=== PATIENT | female | born 1950 | race Caucasian/White ===

== ENCOUNTER → 2016-08-18 | Outpatient (CLI) | payer BC ==
[~2016-08-18] MED LIST: ASPI-113 PO; ATOR10TA88 PO; BENA1TAB19 PO; CLB/200 PO; OXYC-292 PO
[2016-08-18 18:01] LABS: URINE APPEARANCE CLEAR (CLEAR); URINE BILIRUBIN NEG (NEG); URINE COLOR YELLOW; URINE EPITHELIAL CELL AUTO >30 /lpf (0-5); URINE NITRITE NEG (NEG); URINE SPECIFIC GRAVITY 1.005 (1.000-1.030); UROBILINOGEN NEG (NEG)
[2016-08-18 18:12] LABS: MANUAL MICROSCOPIC REQUIRED? NO; REVIEW REQ? NO
== END | disposition home or self-care (01) ==
LOC: C.LABSPEC 16:52
PROVIDERS: ATTEND Obstetrics & Gynecology
DX: N76.2 Acute vulvitis (principal)

== ENCOUNTER → 2016-09-15 | Outpatient (CLI) | payer BC | END | disposition home or self-care (01) | LOC: C.PAPS 13:40 | PROVIDERS: ATTEND Obstetrics & Gynecology | DX: Z01.419 Encounter for gynecological examination (general) (routine) without abnormal findings (principal) ==

== ENCOUNTER → 2017-04-13 | Outpatient (CLI) | payer BC ==
--- NOTE | 2017-04-14 07:34 | MAMMOGRAPHY REPORT ---
BILATERAL DIGITAL SCREENING MAMMOGRAM WITH CAD: 04/13/2017 CLINICAL HISTORY: Routine screening. Patient has no complaints. TECHNIQUE: Bilateral CC and MLO views were obtained. Current study was also evaluated with a Comput er Aided Detection (CAD) system. COMPARISON: Comparison is made to exams dated: 04/08/2016 mammogram, 04/04/2015 mammogram, 03/20/2014 mammogram, 03/16/2013 mammogram, 03/15/2012 mammogram, and 03/12/2011 mammogram - [facility]. BREAST COMPOSITION: There are scattered areas of fibroglandular density in both breasts. FINDINGS: The breast parenchymal pattern is similar to prior mammograms. No suspicious mass, archite ctural distortion or cluster of microcalcifications is seen. IMPRESSION: ACR BI-RADS CATEGORY 1: NEGATIVE There is no mammographic evidence of malignancy. A 1 year screening mammogram is recommended. The pa tient will receive written notification of the results. Approximately 10% of breast cancers are not detected with mammography. A negative mammographic report should not delay biopsy if a clinically suggestive mass is present. Chayo Pereira M.D. ay/:04/13/2017 15:16:31 Dining Room Attendant Cafeteria: Deann Madrid, [facility] letter sent: Normal 1/2 BI-RADS Code: ACR BI-RADS Category 1: Negative
== END | disposition home or self-care (01) ==
LOC: C.MAMM 08:26
PROVIDERS: ATTEND Obstetrics & Gynecology
DX: Z12.31 Encounter for screening mammogram for malignant neoplasm of breast (principal)

== ENCOUNTER → 2017-07-20 | Outpatient (CLI) | payer BC ==
[~2017-07-20] MED LIST changes: +ATOR10TA82 PO; -ATOR10TA88 PO; -BENA1TAB19 PO; +BENA1TAB53 PO
[2017-07-20 11:05] LABS: BASO % 0.3 %; BASO ABS # 0.02 K/uL (0-0.2); EOS % 1.8 %; EOS ABS # 0.11 K/uL (0-0.5); HEMATOCRIT 41.8 % (37-47); HEMOGLOBIN 14.1 g/dL (12.0-16.0); IG# 0.01 K/uL (0.00-0.02); LYMPH % 31.4 %; MEAN CELL VOLUME 90.5 fL (80-100); MEAN CORPUSCULAR HEMOGLOBIN 30.5 pg (25-34); MEAN CORPUSCULAR HGB CONC 33.7 g/dl (32-36); MEAN PLATELET VOLUME 10.8 fL (7.4-10.4); MONO % 7.1 %; MONO ABS # 0.43 K/uL (0.11-0.59); NEUT % 59.2 %; NEUT ABS # 3.58 K/uL (1.4-6.5); PLATELET COUNT 226 K/uL (130-400); RED CELL DISTRIBUTION WIDTH CV 13.5 % (11.5-14.5); RED CELL DISTRIBUTION WIDTH SD 44.3 fL (36.4-46.3); WHITE BLOOD COUNT 6.05 K/uL (4.8-10.8)
[2017-07-20 11:23] LABS: HEMOGLOBIN A1C 5.7 % (4.5-5.6)
[2017-07-20 11:31] LABS: ALBUMIN 3.6 gm/dl (3.4-5.0); ALT/SGPT 25 U/L (12-78); BLOOD UREA NITROGEN 21 mg/dl (7-18); CARBON DIOXIDE 26 mmol/L (21-32); CHOLESTEROL 237 mg/dl (0-200); CREATININE 0.79 mg/dl (0.60-1.20); GLUCOSE 91 mg/dl (70-99); POTASSIUM 3.8 mmol/L (3.5-5.1); SODIUM 139 mmol/L (136-145)
[2017-07-20 11:42] LABS: ALKALINE PHOSPHATASE 66 U/L (45-117); AST/SGOT 17 U/L (15-37); LDL CHOLESTEROL CALCULATED 157 mg/dl; TOTAL PROTEIN 6.8 gm/dl (6.4-8.2)
== END | disposition home or self-care (01) ==
LOC: C.LABBC 08:13
PROVIDERS: ATTEND Internal Medicine
DX: E78.5 Hyperlipidemia, unspecified (principal); I10 Essential (primary) hypertension; E73.9 Lactose intolerance, unspecified; E55.9 Vitamin D deficiency, unspecified; R73.09 Other abnormal glucose

== ENCOUNTER → 2017-09-23 | Outpatient (CLI) | payer BC | END | disposition home or self-care (01) | LOC: C.PAPS 13:51 | PROVIDERS: ATTEND Obstetrics & Gynecology | DX: M17.10 Unilateral primary osteoarthritis, unspecified knee (principal) ==

== ENCOUNTER → 2017-10-22 | Outpatient (CLI) | payer BC ==
[~2017-10-22] MED LIST changes: +CHOL20007 PO; +HYG/25 PO
[2017-10-22 16:58] LABS: POTASSIUM 3.6 mmol/L (3.5-5.1)
== END | disposition home or self-care (01) ==
LOC: C.LAB1850 15:56
PROVIDERS: ATTEND Obstetrics & Gynecology
DX: Z01.818 Encounter for other preprocedural examination (principal)

== ENCOUNTER → 2017-11-11 | Day surgery (SDC) | payer BC ==
[2017-10-22 11:40] VITALS: Ht 157.5 cm; Wt 75.0 kg
[~2017-11-11] VITALS: Ht 157.5 cm; Wt 75.0 kg
[~2017-11-11] MED LIST changes: -ASPI-113 PO; +ATROPINE SULFATE 0.1 MG/ML 5ML SYR IV PRN; -CLB/200 PO; +DEXAMETHASONE SOD INJ 4 MG/ML VIAL ONE; +FENTANYL CITRATE INJ 50 MCG/1 ML 2 ML VIAL IV PRN; +FENTANYL CITRATE INJ 50 MCG/1 ML 2 ML VIAL ONE; +IBUPROFEN 600 MG TAB PO PRN; +KETOROLAC TROMETHAMINE 30 MG/ML VIAL IV. PRN; +KETOROLAC TROMETHAMINE 30 MG/ML VIAL ONE; +LACTATED RINGER'S 1000ML 1,000 ML IV SCH; +LIDOCAINE HCL 2% 2 ML VIAL (20MG/ML) ONE; +MIDAZOLAM HCL 1 MG/ML 2ML VIAL ONE; +ONDANSETRON INJ 2 MG/ML 2 ML VIAL IV PRN; +ONDANSETRON INJ 2 MG/ML 2 ML VIAL ONE; -OXYC-292 PO; +OXYCODONE/ACETAMINOPHEN 5-325 TAB PO PRN; +PROMETHAZINE HCL INJ 25 MG in SODIUM CHLORIDE 0.9% 50ML 50 ML IV PRN; +PROPOFOL IV EMULSION 10 MG/ML 20 ML VIAL ONE; +SODIUM CHLORIDE 0.9% 1000ML 1,000 ML IV SCH
--- NOTE | 2017-11-11 11:45 | History & Physical Bridge - SC ---
H&P Re-Evaluation Bridge Note: I have examined the patient, reviewed the History & Physical and in the interval since the performance of the History & Physical I have noted the following changes of clinical significance: No changes noted
--- NOTE | 2017-11-11 12:21 | [facility] Post Operative Brief Note ---
Immediate Operative Summary Operative Date November 11, 2017. Pre-Operative Diagnosis Post Menopausal Bleeding Post-Operative Diagnosis same as pre op & endometrial polyp Procedure(s) Performed Dilatation And Curettage, Hysteroscopy, Polypectomy Surgeon Dr Zeng Workers' Compensation Hearings Officer Surgeon(s) none Estimated Blood Loss 5ml Findings Consistent with Post-Op Diagnosis Fluids (cc crystalloids) 700 Specimens A) Endometrial Curettings and Polyp Drains None Anesthesia Type General Complication(s) none Disposition Accompanied Pt To Recover: yes Disposition: Recovery Room / PACU
--- NOTE | 2017-11-11 12:27 | Discharge Instructions-SurgCtr ---
Discharge Instructions Date of Service November 11, 2017. Visit Reason for Visit: Post Menopausal Bleeding Discharge Discharge Diagnosis / Problem: endometrial polyp removal Discharge Goals Goal(s): Therapeutic intervention Activity Recommendations Activity Limitations: per Instructions/Follow-up section Anesthesia . Post Anesthesia Instructions: If you have had General Anesthesia or IV Sedation: * Do not drive today. * Resume driving when surgeon permits. * Do not make important decisions or sign legal documents today. * Call surgeon for: 1. Temperature elevations greater than 101 degrees F. 2. Uncontrollable pain. 3. Excessive bleeding. 4. Persistent nausea and vomiting. 5. Medication intolerance (nausea, vomiting or rash). * For nausea and vomiting use only clear liquids such as: tea, soda, bouillon until nausea subsides, then gradually increase diet as tolerated. * If you have any concerns or questions, call your surgeon's office. If physician is unavailable and it is an emergency, call 911 or go to the nearest emergency room. . Instructions / Follow-Up Instructions / Follow-Up ACTIVITY RECOMMENDATIONS: * Avoid tampons, douching, hot tubs, pools, and intercourse until bleeding has stopped. * May shower as usual. * No strenuous activity for 24-48 hours. After 24-48 hours, you may do anything you feel like doing (driving and sports are okay). SPECIAL CARE INSTRUCTIONS: Special Diet: * Mild nausea may occur in the immediate post-operative period. * Take clear liquids such as tea, cola or bouillon until all nausea has subsided; you may then resume your normal diet. Special Care: * Light bleeding and vaginal spotting can last from a few days to 3-4 weeks. Call your doctor if bleeding becomes heavier than the heaviest part of your period. * Check your temperature twice a day for one week. If it goes above 100.4 degrees Fahrenheit (38.0 Celsius), notify your doctor. * Call your doctor's office for an appointment for 6 weeks after your surgery. FOLLOW-UP VISIT: Call your doctor's office for an appointment for 6 weeks after your surgery. Diet Recommendations Home Diet: resume previous diet Procedures Procedures Performed: Dilatation And Curettage, Hysteroscopy, Polypectomy Pending Studies Studies pending at discharge: no Medical Emergencies . Who to Call and When: Medical Emergencies: If at any time you feel your situation is an emergency, please call 911 immediately. . Non-Emergent Contact Non-Emergency issues call your: Primary Care Provider, Roads And Parking Lots Sweeper Operator . . "Provider Documentation" section prepared by Marielena Chanel .
--- NOTE | 2017-11-11 13:20 | Anesthesia Progress Nt - [facility] ---
Anesthesia Post Op Note Date & Time November 11, 2017 at 13:19 Vital Signs Pain Intensity: 0 Vital Signs Past 12 Hours Date Time Temp Pulse Resp B/P (MAP) Pulse Ox O2 Delivery O2 Flow Rate FiO2 11/11/17 13:03 36.4 59 16 117/73 (88) 95 Room Air 11/11/17 12:59 36.3 59 15 11/11/17 12:59 59 15 94 11/11/17 12:58 36.3 59 16 123/72 94 Room Air 11/11/17 12:56 123/72 (91) 11/11/17 12:54 60 19 11/11/17 12:54 60 19 96 11/11/17 12:51 133/71 (89) 11/11/17 12:49 61 14 96 11/11/17 12:49 61 14 11/11/17 12:46 121/65 (84) 11/11/17 12:45 Room Air 11/11/17 12:44 60 15 97 11/11/17 12:44 61 15 11/11/17 12:41 123/67 (86) 11/11/17 12:39 62 20 11/11/17 12:39 62 20 97 11/11/17 12:36 125/67 (89) 11/11/17 12:34 63 20 98 11/11/17 12:34 63 20 11/11/17 12:31 120/64 (83) 11/11/17 12:29 59 17 94 11/11/17 12:29 60 17 11/11/17 12:27 123/67 (91) 11/11/17 12:24 36.0 62 16 123/67 98 Diffusion Mask 5 11/11/17 11:06 36.3 61 18 139/83 (101) 95 Room Air Notes Mental Status: alert / awake / arousable, participated in evaluation Pt Amnestic to Procedure: Yes Nausea / Vomiting: adequately controlled Pain: adequately controlled Airway Patency, RR, SpO2: stable & adequate BP & HR: stable & adequate Hydration State: stable & adequate Anesthetic Complications: no major complications apparent
[2017-11-11 13:23] VITALS: BP 148/76; PULSE 57; O2SAT 94
--- NOTE | 2017-11-11 14:02 | OPERATIVE REPORT ---
DATE OF OPERATION: 11/11/2017 SURGEON: Marielena Lujan MD PREOPERATIVE DIAGNOSIS: Postmenopausal bleeding, probable endometrial polyp on ultrasound. POSTOPERATIVE DIAGNOSES: Postmenopausal bleeding, probable endometrial polyp on ultrasound, plus endometrial polyp. PROCEDURE: D and C, hysteroscopy, and polypectomy. ANESTHESIA: General. BLOOD LOSS: 5 mL. HISTORY OF PRESENT ILLNESS: The patient is a 66-year-old multiparous white female who presented with a history of brownish discharge also with some bright red bleeding in August. An ultrasound showed a thickened endometrium with microcysts consistent with an endometrial polyp. She is now scheduled for D and C, hysteroscopy, and polypectomy. She understands the risks of procedure and is willing to proceed. GROSS FINDINGS: External genitalia are multiparous without lesions. Vagina and cervix are also without lesions. Bimanual exam, the uterus is small, mobile, and of normal contour. There are no adnexal masses present. Under hysteroscopic evaluation, the endometrial cavity is noted to have a normal contour, both endometrial ostia could be seen. There is a small endometrial polyp arising from the posterior wall of the uterus near the fundus. PROCEDURE IN DETAIL: After the patient received adequate general anesthetic, she was prepped and draped in usual sterile fashion. After the bladder was emptied, a weighted speculum was placed in the vagina and the anterior lip of the cervix was grasped with a single tooth tenaculum. The uterus was sounded to 7 cm. It was then dilated to a #27 Hanks dilator. The small hysteroscope was inserted. Normal saline was the expanding medium. Findings were noted as above. Sharp curettage and polyp forceps were used to remove the polyp. Post-polypectomy evaluation showed there was no retained polyp present. At this point, the case was terminated. The single tooth tenaculum was removed from the cervix and bleeding at the tenaculum site was controlled with Allis clamps. The normal saline deficit was 100 mL and 1100 mL of normal saline were used. Hemostasis was excellent at the end of the case. The patient tolerated the procedure well and was stable upon arrival in recovery room. I attest to the content of the Intraoperative Record and any orders documented therein. Any exception s are noted below.
== END | disposition home or self-care (01) ==
LOC: X.SURG 10:53
PROVIDERS: ATTEND Obstetrics & Gynecology
DX: N84.0 Polyp of corpus uteri (principal); Z87.42 Personal history of other diseases of the female genital tract; E78.5 Hyperlipidemia, unspecified; I10 Essential (primary) hypertension; L28.0 Lichen simplex chronicus; E66.9 Obesity, unspecified; M17.10 Unilateral primary osteoarthritis, unspecified knee; E55.9 Vitamin D deficiency, unspecified; Z83.3 Family history of diabetes mellitus; Z80.3 Family history of malignant neoplasm of breast; Z82.49 Family history of ischemic heart disease and other diseases of the circulatory system; Z88.0 Allergy status to penicillin; Z88.1 Allergy status to other antibiotic agents

== ENCOUNTER → 2018-02-09 | Outpatient (CLI) | payer BC ==
[~2018-02-09] MED LIST changes: +ATOR-54 PO; -ATROPINE SULFATE 0.1 MG/ML 5ML SYR IV PRN; -DEXAMETHASONE SOD INJ 4 MG/ML VIAL ONE; -FENTANYL CITRATE INJ 50 MCG/1 ML 2 ML VIAL IV PRN; -FENTANYL CITRATE INJ 50 MCG/1 ML 2 ML VIAL ONE; -IBUPROFEN 600 MG TAB PO PRN; -KETOROLAC TROMETHAMINE 30 MG/ML VIAL IV. PRN; -KETOROLAC TROMETHAMINE 30 MG/ML VIAL ONE; -LACTATED RINGER'S 1000ML 1,000 ML IV SCH; -LIDOCAINE HCL 2% 2 ML VIAL (20MG/ML) ONE; -MIDAZOLAM HCL 1 MG/ML 2ML VIAL ONE; -ONDANSETRON INJ 2 MG/ML 2 ML VIAL IV PRN; -ONDANSETRON INJ 2 MG/ML 2 ML VIAL ONE; -OXYCODONE/ACETAMINOPHEN 5-325 TAB PO PRN; -PROMETHAZINE HCL INJ 25 MG in SODIUM CHLORIDE 0.9% 50ML 50 ML IV PRN; -PROPOFOL IV EMULSION 10 MG/ML 20 ML VIAL ONE; -SODIUM CHLORIDE 0.9% 1000ML 1,000 ML IV SCH; +TRMCR180 TOP
[2018-02-09 10:53] LABS: ALBUMIN 3.8 gm/dl (3.4-5.0); ALKALINE PHOSPHATASE 67 U/L (45-117); ALT/SGPT 31 U/L (12-78); AST/SGOT 22 U/L (15-37); BLOOD UREA NITROGEN 15 mg/dl (7-18); CARBON DIOXIDE 29 mmol/L (21-32); CHOLESTEROL 229 mg/dl (0-200); CREATININE 0.82 mg/dl (0.60-1.20); GLUCOSE 89 mg/dl (70-99); LDL CHOLESTEROL CALCULATED 151 mg/dl; POTASSIUM 3.6 mmol/L (3.5-5.1); SODIUM 140 mmol/L (136-145)
== END | disposition home or self-care (01) ==
LOC: C.LABBC 07:31
PROVIDERS: ATTEND Internal Medicine
DX: E78.5 Hyperlipidemia, unspecified (principal); I10 Essential (primary) hypertension

== ENCOUNTER 2025-01-18 08:29 | Observation (INO) ==
[2025-01-18 08:56] LABS: Hematocrit (blood only) 42.4 % (37.0-47.0); Hemoglobin 14.9 g/dl (12.0-16.0); Immature Granulocytes # (auto) 0.02 K/uL (0.01-0.20); Immature Granulocytes % (auto) 0.3 %; Mean Corpuscular Hemoglobin 31.1 pg (25.0-34.0); Mean Corpuscular Volume 88.5 fL (80.0-100.0); Platelet Count 235 K/uL (130-400); RDW Standard Deviation 43.9 fL (36.4-46.3); Red Blood Count 4.79 M/uL (4.20-5.40); White Blood Count 6.08 K/ul (4.8-10.8)
--- NOTE | 2025-01-18 08:58 | XRay Report ---
XR chest 1V portable CLINICAL HISTORY: Dysrhythmia COMPARISON STUDY: 01/14/2025 FINDINGS: Heart size and pulmonary vasculature are normal. No consolidation or pleural effusion. No p neumothorax. IMPRESSION: No acute findings. ACT 112: Negative or not required by law. Electronically signed by: Lorenzo Sheikh M.D. 01/18/2025 8:57 AM
--- NOTE | 2025-01-18 09:00 | Emergency Department Note ---
Impression & Plan Syncope and collapse, Lightheadedness, Palpitations, Dizziness ED Provider Note CHIEF COMPLAINT: Lightheadedness, dizziness HISTORY OF PRESENTING ILLNESS: Patient is a 74-year-old female presents to the emergency department today for complaints of lightheadedness and dizziness upon wakening. She states this has been ongoing for several weeks. She did have a syncopal episode about a week, week and a half ago. She states that she was seen by her primary care doctor and given a Holter monitor. She also had a vascular ultrasound of the bilateral carotid arteries. Those results are still pending. She denies any falls or trauma. She has not seen cardiology yet as she could not get scheduled until March. She does need an echo but is also unable to get that scheduled soon either. She does report a left-sided chest pressure but declines pain. She denies chest pain, sob, breathing difficulties, abdominal pain, headache, fevers/chills, blood in stool or urine, any recent illness, or any recent travel. REVIEW OF SYSTEMS: See HPI for pertinent positives and pertinent negatives. ALLERGIES: See below MEDICATIONS: See below PAST MEDICAL HISTORY: See below PHYSICAL EXAM: VITALS: Vitals are noted on the nurse's note and reviewed by myself. GENERAL: Non toxic, in no acute distress, non-diaphoretic. SKIN: Capillary refill <2 sec. EYES: PERRLA. EOMI. Conjunctivae without injection, sclerae without icterus. HEART: Regular rate and rhythm without murmurs gallops or rubs. LUNGS: Clear to auscultation bilaterally without wheezes, rales or rhonchi. No retractions or accessory muscle use. ABDOMEN: Positive bowel sounds x 4. Normal tympanic percussion. Soft, nontender to palpation. No masses or hepatosplenomegaly. MUSCULOSKELETAL: No gross musculoskeletal defects. NEURO: Patient was alert and oriented. No focal neurological deficits. NIH 0 DIFFERENTIAL DIAGNOSIS: Differential diagnosis includes acute coronary syndrome, pulmonary embolism, pneumothorax, pericarditis, myocarditis, endocarditis, anxiety, musculoskeletal pain, GERD, costochondritis, pneumonia, among others. ED COURSE AND MEDICAL DECISION MAKING: HISTORY FROM INDEPENDENT HISTORIAN: History was provided by the patient and her who is at bedside. MONITOR: Continuous environmental monitoring technician: Order was placed for continuous environmental monitoring technician. Patient was placed on the environmental monitoring technician and continuous pulse ox. Patient was noted to be in normal sinus rhythm at an initial rate of 62 bpm per my interpretation. EKG: EKG was interpreted by myself as normal sinus rhythm with possible inferior infarct, age undetermined. INTERPRETATION OF LABS: I interpreted the labs with full lab results as below in the lab section of this note. Laboratory results pertinent to the emergent complaint are discussed in the MDM section below. The patient was advised to follow up with their PCP and/or specialist(s) for further outpatient monitoring and management of any abnormal results. INTERPRETATION OF IMAGING: Imaging studies were interpreted by myself and read by radiology as per the imaging section of this note. The patient was advised to follow up with their PCP and/or specialist(s) for further outpatient management of any non-emergent abnormal findings. CHRONIC MEDICAL/SOCIAL CONDITIONS AFFECTING CARE: No social concerns were identified as barriers to patients care. ESCALATION OF CARE CONSIDERED: I considered admission on this patient due to ongoing syncopal episode, dizziness, lightheadedness. CONSULTATIONS: I had a meaningful discussion about this patient with Dr. Morrow who agrees with my assessment and the treatment plan. I also consulted with Dr. Partida who accepted the patient for admission to the hospital. SUMMARY: I examined the patient for complaints of lightheadedness and dizziness. A physical exam and history were performed. Nursing notes, EMR, and medication list were personally reviewed. CBC was normal, CMP showed a sodium of 135 and glucose of 117. PT/INR and APTT were normal. TSH was normal. CTA of the head and neck showed no acute findings. I discussed all findings with the patient who expressed frustration due to not finding any answers for her symptoms. We did discuss the possibility for admission to the hospital and she would prefer that at this time. The patient will likely need to have an echocardiogram. I did consult with Dr. Fuentes who accepted the patient for admission. DIAGNOSIS: Syncope, lightheadedness, dizziness TREATMENT PLAN/DISCHARGE INSTRUCTIONS: Admit to hospitalist services by Dr. Partida Past Med/Surg History Problem List Dizziness (Acute) Palpitations (Acute) Lightheadedness (Acute) Syncope and collapse (Acute) Urinary symptom or sign Frequent UTI (Chronic) Incontinence (Chronic) Basal cell carcinoma of face History of colon polyps EIN (endometrial intraepithelial neoplasia) Impaired glucose regulation (Chronic) Hgb A1C 5.8 in 04/2022 Hypertension (Chronic) Vitamin D deficiency (Chronic) Postmenopausal atrophic vaginitis (Chronic) Colon polyps (Chronic) Migraine headache with aura Stress incontinence Osteoarthritis of knee (Chronic) Hyperlipidemia (Chronic 07/03/12) 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) Lichen simplex chronicus (Chronic) Osteopenia after menopause (Chronic) Medical History Postmenopausal bleeding Endometrial polyp History of migraine Benign hypertension (07/03/12) Surgical History History of Mohs micrographic surgery for skin cancer [facility] - 01/19/24 History of robot-assisted laparoscopic hysterectomy TLH/BSO, EIN 2022 Status post hysteroscopic polypectomy History of bunionectomy RT/LEFT History of total knee replacement LEFT History of cataract surgery RT/LEFT S/P tubal ligation H/O arthroscopy of left knee H/O dilation and curettage H/O colonoscopy Family History Mother Breast cancer Prediabetes Brother Prostate cancer Diabetes Aunt Colon cancer Maternal Uncle Myocardial infarction Other Hypertension No family history of adverse response to anesthesia Stroke Denies family history of Ovarian cancer Lung cancer Social History Smoking Status: Never smoker Second Hand Exposure: Yes (IN THE PAST); Do You Dip or Chew Tobacco: No; Hx Alcohol Use: Yes Alcohol type: wine Alcohol Intake Frequency: 4 or More x per/Week Alcohol Intake Frequency Comment: 1 glass Hx Substance Use: No Preferred Language: Salvadorean Communication Ability: Effective Visual Impairment: Limited Hearing Ability: Normal Marketing Reporting Analyst Required: No Beliefs That Will Affect Care: None marital status: Current Living Situation: Spouse current occupational status: retired How many Children do You have: 2 Other Information That Helps Us Care for You: No Feels Safe at Home: Yes Childhood Exposure to Second-Hand Smoke: No Diet: regular caffeine: Yes Dental Care, Regularly: Yes Physical Activity Frequency: 3-4 Times per Week Physical Activity Frequency Comment: walking Seatbelt Use: always Sunscreen Use: Yes Assistive Devices: None Allergies Allergies Allergy/AdvReac Type Severity Reaction Status Date / Time amoxicillin Allergy Unknown RASH Verified 01/18/25 10:55 Penicillins Allergy Unknown rash Verified 01/18/25 10:55 Home Meds Home Medications Medication Instructions Recorded Confirmed calcium carbonate (Calcium 600) 600 mg PO QAM 03/28/19 01/18/25 cholecalciferol (vitamin D3) 50 4,000 units PO QAM 03/28/19 01/18/25 mcg (2,000 unit) capsule lifitegrast 5 % eye drops in a 1 drp OPB BID 11/29/24 01/18/25 dropperette (Xiidra) chlorthalidone 25 mg tablet 12.5 mg PO QAM 01/15/25 01/18/25 Previous Rx's Medication Instructions Recorded atorvastatin 20 mg tablet 20 mg PO DAILY #90 tabs 08/10/24 benazepril 40 mg tablet (Lotensin) 40 mg PO QAM #90 tabs 01/09/25 Results & Data (ED) Vital Signs Vital Signs - 24 hr 01/18/25 08:29 01/18/25 08:49 01/18/25 08:58 Temperature 36.8 C Temperature Source Temporal Artery Scan Pulse Rate 73 62 Pulse Rate [Apical] 57 L Pulse Rhythm [Apical] Regular Pulse Strength [Apical] Normal Respiratory Rate 14 16 Respiratory Effort / Characteristics Non-Labored Respiratory Depth Normal Respiratory Pattern Regular Blood Pressure 162/77 H Blood Pressure [Right Arm] 137/86 Blood Pressure Mean 105 Blood Pressure Mean [Right Arm] 103 Blood Pressure Position [Right Arm] Semi-fowlers Pulse Oximetry 99 93 Oxygen Delivery Method Room Air Room Air Sepsis New/Unexplained Change in Mental Status No Sepsis Action Taken by Nursing No Action Required Laboratory Data 01/18/25 08:45 01/18/25 08:45 Lab Results 01/18/25 Range/Units 08:45 WBC 6.08 (4.8-10.8) K/ul RBC 4.79 (4.20-5.40) M/uL Hgb 14.9 (12.0-16.0) g/dl Hct 42.4 (37.0-47.0) % MCV 88.5 (80.0-100.0) fL MCH 31.1 (25.0-34.0) pg MCHC 35.1 (32.0-36.0) g/dL RDW Std Deviation 43.9 (36.4-46.3) fL RDW Coeff of Charito 13.5 (11.5-14.5) % Plt Count 235 (130-400) K/uL MPV 10.2 (9.4-12.4) fL Immature Gran % (Auto) 0.3 % Neut % (Auto) 62.7 % Lymph % (Auto) 29.1 % Garrard % (Auto) 5.6 % Eos % (Auto) 1.6 % Baso % (Auto) 0.7 % Neut # (Auto) 3.81 (1.40-6.50) K/uL Lymph # (Auto) 1.77 (1.20-3.40) K/uL Garrard # (Auto) 0.34 (0.11-0.59) K/uL Eos # (Auto) 0.10 (0.00-0.50) K/uL Baso # (Auto) 0.04 (0.00-0.20) K/uL Immature Gran # (Auto) 0.02 (0.01-0.20) K/uL PT 10.3 (9.0-12.0) Seconds INR 0.9 (0.9-1.1) APTT 30 (21-31) Seconds PTT Ratio 1.1 Sodium 135 L (136-145) mmol/L Potassium 4.0 (3.5-5.1) mmol/L Chloride 98 (98-107) mmol/L Carbon Dioxide 31 (21-32) mmol/L Anion Gap 6 (3-11) BUN 15 (6-23) mg/dl Creatinine 0.77 (0.6-1.2) mg/dl Est Cr Clr Drug Dosing 62.4 ml/min eGFR 81.40 BUN/Creatinine Ratio 19.5 (10-20) Glucose 117 H (70-99(Fasting)) mg/dl Osmolality 287 (280-300) mOsm/kg Calcium 9.7 (8.6-10.3) mg/dl Magnesium 2.1 (1.7-2.4) mg/dl Total Bilirubin 0.5 (0.2-1.0) mg/dl AST 23 (13-39) U/L ALT 15 (7-52) U/L Alkaline Phosphatase 87 (34-104) U/L Troponin I High Sens 3.2 (0-14) pg/ml Total Protein 7.5 (6.0-8.3) gm/dl Albumin 4.8 (3.4-5.0) gm/dl Globulin 2.7 (2.5-4.0) gm/dl Albumin/Globulin Ratio 1.8 (0.9-2) TSH 2.322 (0.300-4.500) uIu/ml Free T4 0.81 (0.61-1.60) ng/dl Free T3 3.20 (2.3-4.2) pg/ml Administered Medications Discontinued Medications Ioversol (Optiray 320 125ml) 112 ml IV ONCE ONE Stop: 01/18/25 09:51 Last Admin: 01/18/25 09:50 Dose: 112 ml Documented By: MARK Imaging Data Radiologist's Impression: Chest X-Ray 01/18/25 08:36 XR chest 1V portable CLINICAL HISTORY: Dysrhythmia COMPARISON STUDY: 01/14/2025 FINDINGS: Heart size and pulmonary vasculature are normal. No consolidation or pleural effusion. No pneumothorax. IMPRESSION: No acute findings. ACT 112: Negative or not required by law. Electronically signed by: Lorenzo Sheikh M.D. 01/18/2025 8:57 AM Head CTA 01/18/25 08:46 CT angio head wo/w CLINICAL HISTORY: 74 years-old Female with sycope, dizziness. Acute syncope with dizziness COMPARISON STUDY: CTA neck of same day, head CT 01/09/2025 TECHNIQUE: Unenhanced axial CT scan of the brain is performed. Subsequently, following the IV administration of 112 cc of Optiray, CT angiogram of the brain was performed from the skull base to the vertex. Images are reviewed in the axial, sagittal, and coronal planes. 3-D MIPS images are created and assessed. IV contrast was administered without complication. All measurements were obtained according to NASCET criteria. A dose lowering technique was utilized adhering to the principles of ALARA. CT DOSE: 1022.3 mGy.cm FINDINGS: CT BRAIN: There is no acute intracranial hemorrhage, midline shift, hydrocephalus, intracranial mass, territorial ischemia or abnormal extra-axial collections. No abnormal intra-axial or extra-axial enhancement. Involutional changes with mild white matter hypodensities suggestive of mild chronic microvascular ischemic disease. Mastoid air cells and middle ear cavities are clear. No calvarial fracture. Paranasal sinuses are clear. CT ANGIOGRAM OF THE BRAIN: The imaged bilateral internal carotid arteries are patent. The bilateral anterior and middle cerebral arteries are also patent. The vertebrobasilar system and posterior cerebral arteries are widely patent. There is no aneurysm, high-grade stenosis, or proximal branch occlusion identified. Dural sinuses appear patent. IMPRESSION: 1. No acute intracranial abnormality. 2. Unremarkable CTA of the head. ACT 112: Negative or not required by law. The above report was generated using voice recognition software. It may contain grammatical, syntax or spelling errors. Electronically signed by: Star Edwards M.D. 01/18/2025 10:13 AM Neck CTA 01/18/25 08:46 CT ANGIOGRAPHY OF THE NECK WITH CONTRAST CLINICAL HISTORY: dizziness, syncope COMPARISON STUDY: None available at time of interpretation. Technique: CT angiography of the carotid and vertebral arteries was obtained using Optiray and 3D reconstruction on an independent workstation. NASCET criteria was utilized. Automated exposure control was utilized for the study. A dose lowering technique was utilized adhering to the principles of ALARA. Findings: Visualized portions of the lung apices are unremarkable. There is no cervical lymphadenopathy. There is no cervical spine fracture. The bilateral common carotid, cervical internal carotid and vertebral arteries are patent. There is mild atherosclerotic plaque within the proximal left internal carotid artery without stenosis. Mild irregularity of the cervical portion right internal carotid artery is likely due to atherosclerosis. IMPRESSION: No stenosis or dissection within the bilateral common carotid, cervical internal carotid or vertebral arteries. ACT 112: Negative or not required by law. Electronically signed by: Sidney Gillette M.D. 01/18/2025 10:14 AM Discharge Plan Visit Data Chief Complaint: Arrhythmia/Palpitations Stated Complaint: LIGHT HEADED,PALPITATIONS ED Provider: Kyle Morrow ED Midlevel Provider: Bre Saldana Discharge Problem: Syncope and collapse, Lightheadedness, Palpitations, Dizziness Patient Disposition: Admitted As Inpatient Condition: Good Discharge Instructions Interventions: ED Discharge Assessment Last Done: 01/18/25 12:07
[2025-01-18 09:19] LABS: Alanine Aminotransferase 15.0 U/L (7-52); Albumin Globulin Ratio 1.8 (0.9-2); Alkaline Phosphatase 87.0 U/L (34-104); Anion Gap 6.0 (3-11); Bilirubin,Total 0.5 mg/dl (0.2-1.0); Blood Urea Nitrogen 15.0 mg/dl (6-23); Calcium 9.7 mg/dl (8.6-10.3); Carbon Dioxide 31.0 mmol/L (21-32); Chloride 98.0 mmol/L (98-107); Creatinine Clr Calc Pharmacy 62.4 ml/min; Globulin 2.7 gm/dl (2.5-4.0); Glucose 117.0 mg/dl (70-99(Fasting)); Magnesium 2.1 mg/dl (1.7-2.4); Potassium 4.0 mmol/L (3.5-5.1); Sodium 135.0 mmol/L (136-145); Total Protein 7.5 gm/dl (6.0-8.3)
[2025-01-18 09:25] LABS: INR 0.9 (0.9-1.1); Partial Thromboplastin Time 30 Seconds (21-31); Prothrombin Time 10.3 Seconds (9.0-12.0)
--- NOTE | 2025-01-18 09:26 | Emergency Department Note ---
ED Visit Note I was consulted by the Advanced Practice Provider, CHARAN White. I personally made/approved the management plan and take responsibility for the patient management. I performed a substantive portion of the visit. This includes the aspects of: -History/Physical/Personally seeing the patient -MDM .
[2025-01-18 09:35] LABS: Thyroid Stimulating Hormone 2.322 uIu/ml (0.300-4.500)
[2025-01-18] MEDS: OPTIRAY 320 125ml IV ONE (09:50)
--- NOTE | 2025-01-18 10:14 | CT Scan Report ---
CT angio head wo/w CLINICAL HISTORY: 74 years-old Female with sycope, dizziness. Acute syncope with dizziness COMPARISON STUDY: CTA neck of same day, head CT 01/09/2025 TECHNIQUE: Unenhanced axial CT scan of the brain is performed. Subsequently, following the IV adminis tration of 112 cc of Optiray, CT angiogram of the brain was performed from the skull base to the vert ex. Images are reviewed in the axial, sagittal, and coronal planes. 3-D MIPS images are created and a ssessed. IV contrast was administered without complication. All measurements were obtained according to NASCET criteria. A dose lowering technique was utilized adhering to the principles of ALARA. CT DOSE: 1022.3 mGy.cm FINDINGS: CT BRAIN: There is no acute intracranial hemorrhage, midline shift, hydrocephalus, intracranial mass, territori al ischemia or abnormal extra-axial collections. No abnormal intra-axial or extra-axial enhancement. Involutional changes with mild white matter hypodensities suggestive of mild chronic microvascular is chemic disease. Mastoid air cells and middle ear cavities are clear. No calvarial fracture. Paranasal sinuses are clear. CT ANGIOGRAM OF THE BRAIN: The imaged bilateral internal carotid arteries are patent. The bilateral anterior and middle cerebral arteries are also patent. The vertebrobasilar system and posterior cerebral arteries are widely khoury nt. There is no aneurysm, high-grade stenosis, or proximal branch occlusion identified. Dural sinuses appear patent. IMPRESSION: 1. No acute intracranial abnormality. 2. Unremarkable CTA of the head. ACT 112: Negative or not required by law. The above report was generated using voice recognition software. It may contain grammatical, syntax o r spelling errors. Electronically signed by: Star Edwards M.D. 01/18/2025 10:13 AM
--- NOTE | 2025-01-18 10:15 | CT Scan Report ---
CT ANGIOGRAPHY OF THE NECK WITH CONTRAST CLINICAL HISTORY: dizziness, syncope COMPARISON STUDY: None available at time of interpretation. Technique: CT angiography of the carotid and vertebral arteries was obtained using Optiray and 3D rec onstruction on an independent workstation. NASCET criteria was utilized. Automated exposure control was utilized for the study. A dose lowering technique was utilized adhering to the principles of ALA RA. Findings: Visualized portions of the lung apices are unremarkable. There is no cervical lymphadenopat hy. There is no cervical spine fracture. The bilateral common carotid, cervical internal carotid and vertebral arteries are patent. There is mild atherosclerotic plaque within the proximal left internal carotid artery without stenosis. Mild irregularity of the cervical portion right internal carotid ar zulma is likely due to atherosclerosis. IMPRESSION: No stenosis or dissection within the bilateral common carotid, cervical internal carotid or vertebral arteries. ACT 112: Negative or not required by law. Electronically signed by: Sidney Gillette M.D. 01/18/2025 10:14 AM
--- NOTE | 2025-01-18 11:03 | History & Physical Report ---
Date of Service January 18, 2025 Assessment & Plan (1) Dizziness: (2) Palpitations: (3) Lightheadedness: (4) Hypertension: Plan Patient is a 74-year-old female with past medical history of hypertension and hyperlipidemia who presented after syncopal episode 01/08 who has had persistent lightheadedness, dizziness, heart palpitations since the episode. Her symptoms are intermittent and she gets dizzy when going from sitting to standing and has however palpitations both at rest and on exertion. She also endorses chest pressure that gets worse with exertion. She is being admitted for cardiac workup. #dizziness/heart palpitationsEKG showed NSR, no conduction abnormalities. Head CTA, neck CTA negative for acute changes. CXR negative for acute changes. Laboratories WNL, VSS. Orthostatic vital signs ordered Serum osmolality ordered, if elevated will give IV fluids Fecal occult ordered TSH WNL, free T4 and T3 ordered Will hold patient's chlorthalidone Consider as needed hydralazine or amlodipine on DC Telemetry monitoring Echocardiogram ordered - cardiology consulted #HTN - Stable. Will hold patient's chlorthalidone Continue benazepril #HLDcontinue statin VTE ppx: SCDs, low risk Dispo: med/telemetry Admission and Anticipated Discharge Date Admission Date: 01/18/25 History of Present Illness Chief Complaint: Arrhythmia/palpitations Primary Care Provider: Chris Miranda DO patient is a 74-year-old female with past medical history of hypertension and hyperlipidemia who presented after syncopal episode 01/08 who has had persistent lightheadedness, dizziness, heart palpitations since the episode. Her symptoms are intermittent and she gets dizzy when going from sitting to standing and has however palpitations both at rest and on exertion. She also endorses chest pressure that gets worse with exertion. She is being admitted for cardiac workup. Patient seen at bedside with her , Jeremy present. She stated [place] and has not felt the same since. She gets dizzy when she goes from sitting to standing or moves too quickly and feels presyncopal. She also stated she gets heart palpitations that occur intermittently/random which occur both at rest and on exertion. She had an episode when she was laying in bed the other night. She stated her hands sometimes get tingly, denies any numbness. She also stated her blood pressure has been high on numerous occasions and this morning was 189/79, which is abnormal for her. She stated she does have chest pressure, but denies chest pain. This pressure is present at rest however does get worse on exertion. She currently has a heart monitor on that she put on on Thursday, it is to be on for 30 days. She has an appointment with cardiology in March however was concerned and wanted to be evaluated sooner. She is supposed to have an echocardiogram Thursday morning. She had bilateral carotid Dopplers yesterday however report is still pending. She denies any recent nausea, vomiting, diarrhea, hematochezia. She stated she tries to drink at least 60 fluid ounces of water per day and does drink approximately 2 cups of coffee every morning. She denies any nicotine use. She did take all of her home medications today including chlorthalidone. She wishes to be full code and has a living will. Allergies Allergy/AdvReac Type Severity Reaction Status Date / Time amoxicillin Allergy Unknown RASH Verified 01/18/25 10:55 Penicillins Allergy Unknown rash Verified 01/18/25 10:55 Home Medications Medication Instructions Recorded Confirmed Type calcium carbonate (Calcium 600) 600 mg PO QAM 03/28/19 01/18/25 History cholecalciferol (vitamin D3) 50 4,000 units PO QAM 03/28/19 01/18/25 History mcg (2,000 unit) capsule atorvastatin 20 mg tablet 20 mg PO DAILY #90 tabs 08/10/24 01/18/25 Rx lifitegrast 5 % eye drops in a 1 drp OPB BID 11/29/24 01/18/25 History dropperette (Xiidra) benazepril 40 mg tablet (Lotensin) 40 mg PO QAM #90 tabs 01/09/25 01/18/25 Rx chlorthalidone 25 mg tablet 12.5 mg PO QAM 01/15/25 01/18/25 History Past Med/Surg History Problem List (Updated 01/18/25 @ 11:50 by CHARAN Huerta) Dizziness (Acute) Palpitations (Acute) Lightheadedness (Acute) Syncope and collapse (Acute) Urinary symptom or sign Frequent UTI (Chronic) Incontinence (Chronic) Basal cell carcinoma of face History of colon polyps EIN (endometrial intraepithelial neoplasia) Impaired glucose regulation (Chronic) Hgb A1C 5.8 in 04/2022 Hypertension (Chronic) Vitamin D deficiency (Chronic) Postmenopausal atrophic vaginitis (Chronic) Colon polyps (Chronic) Migraine headache with aura Stress incontinence Osteoarthritis of knee (Chronic) Hyperlipidemia (Chronic 07/03/12) 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) Lichen simplex chronicus (Chronic) Osteopenia after menopause (Chronic) Medical History Postmenopausal bleeding Endometrial polyp History of migraine Benign hypertension (07/03/12) Surgical History History of Mohs micrographic surgery for skin cancer [facility] - 01/19/24 History of robot-assisted laparoscopic hysterectomy TLH/BSO, EIN 2022 Status post hysteroscopic polypectomy History of bunionectomy RT/LEFT History of total knee replacement LEFT History of cataract surgery RT/LEFT S/P tubal ligation H/O arthroscopy of left knee H/O dilation and curettage H/O colonoscopy Family History Mother Breast cancer Prediabetes Brother Prostate cancer Diabetes Aunt Colon cancer Maternal Uncle Myocardial infarction Other Hypertension No family history of adverse response to anesthesia Stroke Denies family history of Ovarian cancer Lung cancer Social History Smoking Status: Never smoker Second Hand Exposure: Yes (IN THE PAST); Do You Dip or Chew Tobacco: No; Hx Alcohol Use: Yes Alcohol type: wine Alcohol Intake Frequency: 4 or More x per/Week Alcohol Intake Frequency Comment: 1 glass Hx Substance Use: No Preferred Language: Bulgarian Communication Ability: Effective Visual Impairment: Limited Hearing Ability: Normal Data Virtualization Consultant Required: No Beliefs That Will Affect Care: None marital status: Current Living Situation: Spouse current occupational status: retired How many Children do You have: 2 Feels Safe at Home: Yes Childhood Exposure to Second-Hand Smoke: No Diet: regular caffeine: Yes Dental Care, Regularly: Yes Physical Activity Frequency: 3-4 Times per Week Physical Activity Frequency Comment: walking Seatbelt Use: always Sunscreen Use: Yes Assistive Devices: None Review of Systems Review of Systems: See HPI Physical Exam Physical Exam: The patient is awake, alert and oriented 3, well developed and well nourished, normocephalic and atraumatic, in no acute distress. Non-toxic appearing. HEENT- EOMI, mucous membranes moist. Hearing grossly intact. Heart-normal S1 and S2. No murmurs, rubs or gallops. Lungs-clear bilaterally, no respiratory distress, no accessory muscle use. Abdomen-normal bowel sounds and soft. No ascites noted. Non-tender. Extremities- no clubbing, cyanosis, or edema. Rheumatologic-normal range of motion. Psychiatric-normal affect. Results & Data Results & Data Vital Signs (Past 12 Hours) Vital Signs Temp Pulse Pulse Resp BP BP Pulse Ox 01/18/25 08:58 57 L 16 137/86 93 01/18/25 08:49 62 01/18/25 08:29 36.8 C 73 14 162/77 H 99 O2 Del Method 01/18/25 08:58 Room Air 01/18/25 08:49 01/18/25 08:29 Room Air Laboratory Results reviewed CBC, CMP, magnesium, troponin, TSH Ordered fecal Alexandro, free T4, free T4 3, serum osmole Diagnostic Findings reviewed CXR, head CTA, neck CTA Medications Administered EDnone ECG Additional Comments: NSR, no ischemic changes Rate 69 QTc 454 Code Status & VTE Plan Code Status full code VTE Prophylaxis Plan VTE Prophylaxis will be ordered: Yes Supervising Physician Co-Signing Physician Notes The patient was seen by me. The chart was reviewed. Case discussed with AMAURY Mayorga. Agree with assessment and plan PG Care Time/CCT Total # of Minutes Spent Total Time Spent with Patient: Total time spent is greater than 50% in coordination of care (as documented) at patient's floor/unit and/or counseling patient: Coding Level of Care Code 72140 INT INP/OBS CARE 3/75MIN Diagnoses Dizziness R42 Palpitations R00.2 Lightheadedness R42 Essential hypertension I10 Hypertension type: essential hypertension (4) Hypertension Hypertension type: essential hypertension Qualified Code(s): I10 - Essential (primary) hypertension
[2025-01-18] MEDS ORDERED: MELATONIN 3 MG TAB PO PRN (12:23)
[2025-01-18] MEDS ORDERED: ACETAMINOPHEN 325 MG TAB PO PRN (12:23)
[2025-01-18] MEDS ORDERED: ONDANSETRON INJ 2 MG/ML 2 ML VIAL IV PRN (12:23)
[2025-01-18] MEDS ORDERED: DOCUSATE SODIUM 100 MG CAP PO PRN (12:23)
[2025-01-18] MEDS ORDERED: ARTIFICIAL TEARS OP PRN (12:27)
[2025-01-18 12:44] VITALS: RESP 18
--- NOTE | 2025-01-18 16:18 | Cardiology Consultation ---
Date of Consultation January 18, 2025 Assessment & Plan (1) Syncope and collapse: (2) Dizziness: (3) Hypertension: (4) SIMMONS (dyspnea on exertion): (5) Chest pressure: Plan 1. Syncope: Her syncopal event sounds as though it was likely dehydration or a vagal event from standing in the sun or combination, although we cannot exclude an arrhythmia. So far we have not identified an arrhythmia but she is wearing a 30-day monitor which she started to wear 3 days ago. 2. Dizziness: Her dizziness sounds orthostatic although I do not believe we have really proven that, perhaps it is positional but not hemodynamic. We need to try to record her heart rate and blood pressure while she is having dizziness. 3. Hypertension: Her blood pressure is significantly elevated at times but not enough to explain symptoms. I would be reluctant to control it too tightly until we sort out what is causing her symptoms. Her heart rate is a little bit low at times but not too concerning. If some of her symptoms are anxiety mediated (which could be the case with labile blood pressure) a beta-yury may be preferable to an GABBY inhibitor. I think it is worth the experiment and I am going to start low-dose metoprolol this evening and discontinue the benazepril. 4. Dyspnea on exertion and chest pressure: She does have evidence of plaque in her head and neck vessels and could have coronary artery disease although most of her symptoms do not sound like angina. We may want to do a stress test, I will review things in the morning and see if that is something we should do tomorrow. History of Present Illness Reason for Consultation: Syncope, lightheadedness Attending Physician: Pawel Valdes MD History of Present Illness This is a 74-year-old woman who has not seen cardiology but has been referred and has a history of hypertension, hyperlipidemia, prediabetes as well as an episode of syncope. [place] where she felt woozy and lightheaded and passed out. She tells me that she was standing in the heat talking to a friend and began to feel woozy then suddenly passed out but was caught by her . She does not recall having palpitations at the time or any other cardiovascular symptoms. She was evaluated in the emergency room and was noted to have orthostatic hypotension, she was given intravenous fluids and discharged. Her other emergency room studies were unremarkable. She reports feeling intermittently lightheadedness and dizziness since as well as lethargic and sweaty and has been having to hold onto counters to ambulate at home. She has had a number of specific times when she felt very poorly including an episode January 14, 2025 at home when she felt that her heart was "coming out of my chest", however she notes that she has had these symptoms while she was in the ER without an arrhythmia detected. She presented to the emergency room January 14, 2025 with palpitations and dizziness, evaluation at that time showed that she was significantly hypertensive and tachypneic. The blood pressure improved on its own and she was discharged. She did not have an extensive workup at that time but did have an electrocardiogram which was unremarkable. She then presented to the emergency room today on January 18, 2025. This visit was prompted by lightheadedness and dizziness upon waking this morning. She reports having lightheadedness and dizziness often with standing up although orthostatic hypotension has not consistently been found. She also describes some pressure in her chest which waxes and wanes, does not sound exertional, but is worrisome to her. She also reports gradual dyspnea on exertion, that has been present for some time but may be getting worse. She has a long history of hypertension but has only been treated with benazepril and for short time chlorthalidone. She has not been on a beta-yury that she is aware. Evaluation so far has included electrocardiography on multiple occasions which is unremarkable, essentially normal. Laboratory studies including thyroid and high sensitive troponins on several occasions, neck CTA showing only mild plaque, head CTA showing no significant abnormality and chest x-ray are all unremarkable. Allergies Allergy/AdvReac Type Severity Reaction Status Date / Time amoxicillin Allergy Unknown RASH Verified 01/18/25 10:55 Penicillins Allergy Unknown rash Verified 01/18/25 10:55 Home Medications Medication Instructions Recorded Confirmed Type calcium carbonate (Calcium 600) 600 mg PO QAM 03/28/19 01/18/25 History cholecalciferol (vitamin D3) 50 4,000 units PO QAM 03/28/19 01/18/25 History mcg (2,000 unit) capsule atorvastatin 20 mg tablet 20 mg PO DAILY #90 tabs 08/10/24 01/18/25 Rx lifitegrast 5 % eye drops in a 1 drp OPB BID 11/29/24 01/18/25 History dropperette (Xiidra) benazepril 40 mg tablet (Lotensin) 40 mg PO QAM #90 tabs 01/09/25 01/18/25 Rx chlorthalidone 25 mg tablet 12.5 mg PO QAM 01/15/25 01/18/25 History Patient History Medical History Postmenopausal bleeding Endometrial polyp History of migraine Benign hypertension (07/03/12) Surgical History History of Mohs micrographic surgery for skin cancer [facility] - 01/19/24 History of robot-assisted laparoscopic hysterectomy TLH/BSO, EIN 2022 Status post hysteroscopic polypectomy History of bunionectomy RT/LEFT History of total knee replacement LEFT History of cataract surgery RT/LEFT S/P tubal ligation H/O arthroscopy of left knee H/O dilation and curettage H/O colonoscopy Family History Mother Breast cancer Prediabetes Brother Prostate cancer Diabetes Aunt Colon cancer Maternal Uncle Myocardial infarction Other Hypertension No family history of adverse response to anesthesia Stroke Denies family history of Ovarian cancer Lung cancer Social History Smoking Status: Never smoker Second Hand Exposure: Yes (IN THE PAST); Do You Dip or Chew Tobacco: No; Hx Alcohol Use: Yes Alcohol type: wine Alcohol Intake Frequency: 4 or More x per/Week Alcohol Intake Frequency Comment: 1 glass Hx Substance Use: No Preferred Language: Hebrew Communication Ability: Effective Visual Impairment: Limited Hearing Ability: Normal Mechanical Designer Required: No Beliefs That Will Affect Care: None marital status: Current Living Situation: Spouse current occupational status: retired How many Children do You have: 2 Other Information That Helps Us Care for You: No Feels Safe at Home: Yes Childhood Exposure to Second-Hand Smoke: No Diet: regular caffeine: Yes Dental Care, Regularly: Yes Physical Activity Frequency: 3-4 Times per Week Physical Activity Frequency Comment: walking Seatbelt Use: always Sunscreen Use: Yes Assistive Devices: None Review of Systems Review of Systems: All systems reviewed & are unremarkable except as noted in HPI & below Physical Exam Physical Exam: Constitutional: Alert, cooperative and in no distress. She is obese. HEENT: Unremarkable Neck: No jugular venous distention, carotid pulses are normal and equal bilaterally without bruits. Pulmonary: Clear to auscultation bilaterally. Cardiac: Regular rhythm with no murmur, gallop or rub. Abdomen: Soft, nontender with normal bowel sounds. Extremities: No edema. Neurologic: No focal findings. Skin: No rash, ecchymoses or petechiae. Results & Data Vital Signs (Past 12 Hours) Vital Signs Temp Pulse Pulse Pulse Resp BP BP 01/18/25 15:11 36.6 C 54 L 18 134/78 01/18/25 12:25 01/18/25 12:25 36.5 C 60 18 135/71 01/18/25 11:48 60 21 178/66 H 01/18/25 08:58 57 L 16 137/86 01/18/25 08:49 62 01/18/25 08:29 36.8 C 73 14 162/77 H Pulse Ox O2 Del Method 01/18/25 15:11 96 Room Air 01/18/25 12:25 Room Air 01/18/25 12:25 96 Room Air 01/18/25 11:48 97 Room Air 01/18/25 08:58 93 Room Air 01/18/25 08:49 01/18/25 08:29 99 Room Air Laboratory Results Cardiac Enzymes 01/18/25 Range/Units 08:45 AST 23 (13-39) U/L Troponin I High Sens 3.2 (0-14) pg/ml Coagulation 01/18/25 Range/Units 08:45 PT 10.3 (9.0-12.0) Seconds APTT 30 (21-31) Seconds CBC 01/18/25 Range/Units 08:45 WBC 6.08 (4.8-10.8) K/ul RBC 4.79 (4.20-5.40) M/uL Hgb 14.9 (12.0-16.0) g/dl Hct 42.4 (37.0-47.0) % Plt Count 235 (130-400) K/uL Neut # (Auto) 3.81 (1.40-6.50) K/uL Lymph # (Auto) 1.77 (1.20-3.40) K/uL Gregg # (Auto) 0.34 (0.11-0.59) K/uL Eos # (Auto) 0.10 (0.00-0.50) K/uL Baso # (Auto) 0.04 (0.00-0.20) K/uL Comprehensive Metabolic Panel 01/18/25 Range/Units 08:45 Sodium 135 L (136-145) mmol/L Potassium 4.0 (3.5-5.1) mmol/L Chloride 98 (98-107) mmol/L Carbon Dioxide 31 (21-32) mmol/L BUN 15 (6-23) mg/dl Creatinine 0.77 (0.6-1.2) mg/dl Glucose 117 H (70-99(Fasting)) mg/dl Calcium 9.7 (8.6-10.3) mg/dl AST 23 (13-39) U/L ALT 15 (7-52) U/L Alkaline Phosphatase 87 (34-104) U/L Total Protein 7.5 (6.0-8.3) gm/dl Albumin 4.8 (3.4-5.0) gm/dl Intake and Output 01/18/25 01/18/25 01/18/25 06:59 14:59 22:59 Other: Weight 76.2 kg Weight Measurement Method Standing Scale Patient Weight 01/19/25 06:59 Weight 76.2 kg Diagnostic Findings Telemetry: Sinus rhythm, rate varying 50 to 70 bpm. Echo: By my review she has good left ventricular function, possibly somewhat hyperdynamic, with concentric left ventricular hypertrophy. No significant abnormality. PG Care Time/CCT Total # of Minutes Spent Total Time Spent with Patient: Total time spent is greater than 50% in coordination of care (as documented) at patient's floor/unit and/or counseling patient: Coding Level of Care Code 13666 INT INP/OBS CARE 3/75MIN Diagnoses Syncope and collapse R55 Dizziness R42 Essential hypertension I10 Hypertension type: essential hypertension SIMMONS (dyspnea on exertion) R06.09 Chest pressure R07.89 (3) Hypertension Hypertension type: essential hypertension Qualified Code(s): I10 - Essential (primary) hypertension
--- NOTE | 2025-01-18 17:00 | XCELERA ---
[id number]
[2025-01-18] MEDS: METOPROLOL TARTRATE 25 MG TAB PO SCH (20:39)
[2025-01-19 07:23] VITALS: TEMP 97.9; O2SAT 93
[2025-01-19] MEDS: ATORVASTATIN 20 MG TAB PO SCH (08:01)
[2025-01-19 08:35] LABS: Hematocrit (blood only) 40.0 % (37.0-47.0); Hemoglobin 13.7 g/dl (12.0-16.0); Immature Granulocytes # (auto) 0.01 K/uL (0.01-0.20); Immature Granulocytes % (auto) 0.2 %; Mean Corpuscular Hemoglobin 30.4 pg (25.0-34.0); Mean Corpuscular Volume 88.9 fL (80.0-100.0); Platelet Count 209 K/uL (130-400); RDW Standard Deviation 44.7 fL (36.4-46.3); Red Blood Count 4.50 M/uL (4.20-5.40); White Blood Count 5.40 K/ul (4.8-10.8)
[2025-01-19] MEDS ORDERED: ENALAPRIL MALEATE 10 MG TAB PO SCH (09:00)
[2025-01-19 09:04] LABS: Anion Gap 6.0 (3-11); Blood Urea Nitrogen 15.0 mg/dl (6-23); Calcium 9.4 mg/dl (8.6-10.3); Carbon Dioxide 30.0 mmol/L (21-32); Chloride 102.0 mmol/L (98-107); Creatinine Clr Calc Pharmacy 66.5 ml/min; Glucose 93.0 mg/dl (70-99(Fasting)); Magnesium 2.1 mg/dl (1.7-2.4); Potassium 3.7 mmol/L (3.5-5.1); Sodium 138.0 mmol/L (136-145)
--- NOTE | 2025-01-19 14:45 | Discharge Summary ---
Discharge Summary Date of Service January 19, 2025 Principal Dx & Hospital Course #1 = Principal Diagnosis (1) Near syncope: Suspected medication related. Benazepril/chlorthalidone has been discontinued and metoprolol started. Appreciate cardiology consultation and recommendations. (2) Atypical chest pain: Stress echo completed today, January 19, with no ischemic changes seen. Final report remains pending (3) Palpitations: She is currently wearing a heart monitor and will follow-up as an outpatient (4) Hypertension: Benazepril/chlorthalidone has been switched to metoprolol. Stable Plan Home today, January 19 Admission HPI Per Admitting Provider patient is a 74-year-old female with past medical history of hypertension and hyperlipidemia who presented after syncopal episode 01/08 who has had persistent lightheadedness, dizziness, heart palpitations since the episode. Her symptoms are intermittent and she gets dizzy when going from sitting to standing and has however palpitations both at rest and on exertion. She also endorses chest pressure that gets worse with exertion. She is being admitted for cardiac workup. Patient seen at bedside with her , Jeremy present. She stated she had a syncopal episode at [place] and has not felt the same since. She gets dizzy when she goes from sitting to standing or moves too quickly and feels presyncopal. She also stated she gets heart palpitations that occur intermittently/random which occur both at rest and on exertion. She had an episode when she was laying in bed the other night. She stated her hands sometimes get tingly, denies any numbness. She also stated her blood pressure h as been high on numerous occasions and this morning was 189/79, which is abnormal for her. She stated she does have chest pressure, but denies chest pain. This pressure is present at rest however does get worse on exertion. She currently has a heart monitor on that she put on on Thursday, it is to be on for 30 days. She has an appointment with cardiology in March however was concerned and wanted to be evaluated sooner. She is supposed to have an echocardiogram Thursday morning. She had bilateral carotid Dopplers yesterday however report is still pending. She denies any recent nausea, vomiting, diarrhea, hematochezia. She stated she tries to drink at least 60 fluid ounces of water per day and does drink approximately 2 cups of coffee every morning. She denies any nicotine use. She did take all of her home medications today including chlorthalidone. She wishes to be full code and has a living will. Discharge Exam General-alert and oriented x3, no fever, no chills HEENT-head atraumatic and normocephalic, pupils equal and reactive to light, extraocular muscles intact Neck-no lymphadenopathy or thyromegaly, trachea midline Chest-clear to auscultation. No rales, wheezing or rhonchi Cardiac-regular rate and rhythm, normal S1 and S2 Abdomen-normal bowel sounds, no hepatosplenomegaly Extremities-no cyanosis, clubbing, or edema Neuro-cranial nerves II through XII intact, motor and sensory function within normal limits, strength symmetrical, no focal deficits Psych-normal affect, normal mood Discharge Plan Discharge Items Patient Disposition: Home - Self-Care Reason For Visit: DIZZINESS Discharge Diagnosis: Near syncope, noncardiac chest pain Condition on Discharge: Good Activity: Resume your previous activity Non-emergency contact: Primary Care Provider Call non-emergency contact if: your symptoms worsen Follow-up/Referrals: Chris Miranda DO [Primary Care Provider] - Diet: Regular and Heart Healthy Addtl Attending Provider Instructions: Benazepril/chlorthalidone has been discontinued. Take metoprolol for blood pressure control which is new. A prescription has been sent to your pharmacy. Pending Studies at Discharge: Yes Studies:: Stress echo final report Stand-Alone Forms: My [facility], Smoking Cessation Medications and DC Order Prescriptions: New metoprolol tartrate 25 mg Tablet 25 mg PO BID Qty: 60 0RF Continued atorvastatin 20 mg tablet 20 mg PO DAILY Qty: 90 3RF calcium carbonate [Calcium 600] 600 mg calcium (1,500 mg) tablet 600 mg PO QAM Patient Comments: Unable to verify OTC meds at this date/time. cholecalciferol (vitamin D3) 2,000 unit capsule 4,000 units PO QAM Patient Comments: Unable to verify OTC meds at this date/time. Xiidra 5 % dropperette 1 drp OPB BID Rx Instructions: administer approximately 12 hours apart Discontinued benazepril [Lotensin] 40 mg tablet 40 mg PO QAM Qty: 90 3RF chlorthalidone 25 mg tablet 12.5 mg PO QAM Discharge Orders: Discharge Order (Routine); Ordered 01/19/25 Ordered By: Pawel Valdes Admission Data Admit Date/Time: 01/18/25 11:18 Attending Provider: Pawel Valdes Admit Provider: Pawel Valdes Primary Care Provider: Chris Miranda Other Providers: Harinder Jacobson; Adrienne Fuentes Hospital Stay Data Consultations 01/18/25 11:32 Consult Cardiology Routine 01/18/25 15:52 ED Decision to Admit Stat Diagnostic Imagining Performed 01/18/25 08:46 CTA head wo/w [CT angio head wo/w] Stat CTA neck with con [CT angio neck with con] Stat Pending Results Patient Have Any Pending Studies at Discharge: Yes Discharge Instructions Given to Patient (Per Discharging Provider) Benazepril/chlorthalidone has been discontinued. Take metoprolol for blood pre ssure control which is new. A prescription has been sent to your pharmacy. Total Time Total Time Spent Total Time Spent (In Minutes): 45 minutes Coding Level of Care Code 75212 INP/OBS DISCH >30 MIN Diagnoses Near syncope R55 Atypical chest pain R07.89 Palpitations R00.2 Essential hypertension I10 Hypertension type: essential hypertension
[2025-01-19 15:21] VITALS: BP 134/78; PULSE 60
--- NOTE | 2025-01-19 17:17 | XCELERA ---
[id number]
--- NOTE | 2025-01-21 06:28 | Electrocardiogram Report ---
Test Reason : Blood Pressure : */* mmHG Vent. Rate : 69 BPM Atrial Rate : 69 BPM P-R Int : 122 ms QRS Dur : 92 ms QT Int : 424 ms P-R-T Axes : 51 2 20 degrees QTcB Int : 454 ms Poor data quality, interpretation may be adversely affected Normal sinus rhythm Possible Inferior infarct , age undetermined Abnormal ECG When compared with ECG of 14-Jan-2025 23:19, T wave inversion no longer evident in Anterior leads Confirmed by Harinder Jacobson ([id number]) on 01/21/2025 6:27:40 AM Referred By: REFERRED SELF Confirmed By: Harinder Jacobson
== END 2025-01-19 15:41 | disposition home or self-care (01) ==
LOC: SUATTDRO → 2N 08:29 → ED 08:29 → 2N 12:07